=== PATIENT | female | born 1985 | race Caucasian/White ===

== ENCOUNTER 2017-11-02 10:15 | Day surgery (SDC) | payer BC ==
[~2017-11-02 10:15] MED LIST: Bisacodyl 5 MG Tab PO PRN; Ketorolac 15 MG/ML SDV IVPUSH PRN; Lactated Ringers 1,000 ML IV SCH; Lidocaine 1%/Sod Bicarbonate in NS 8.4% 1 ML Syringe IDERM PRN; Morphine 2 MG/ML Syringe IVPUSH PRN; Naloxone 0.4 MG/ML SDV IVPUSH PRN; Ondansetron 4 MG/2 ML SDV IVPUSH PRN; Sennosides 8.6 MG Tab PO PRN; Sodium Chloride 0.9% 10 ML Syringe FLUSH PRN
--- NOTE | 2017-11-02 11:48 | PCM.PREANE ---
Preanesthetic Assessment - Anesthesia/Transfusion/Family Hx Anesthesia History: Prior Anesthesia Without Reaction Family History of Anesthesia Reaction: No Transfusion History: No Prior Transfusion(s) Intubation History: History of Difficulty Intubation - Review of Systems General: No Symptoms Pulmonary: No Symptoms Cardiovascular: No Symptoms Gastrointestinal: No Symptoms Neurological: No Symptoms Other: Reports: None - Physical Assessment NPO Status Date: 11/02/17 NPO Status Time: 00:00 O2 Sat by Pulse Oximetry: 96 Respiratory Rate: 18 Vital Signs: Last Vital Signs Temp 37.2 C 11/02/17 10:32 Pulse 83 11/02/17 10:32 Resp 18 11/02/17 10:32 BP 126/77 11/02/17 10:32 Pulse Ox 96 11/02/17 10:32 Height: 1.52 m Weight: 69.853 kg ASA Class: 2 Mental Status: Alert & Oriented x3 Dentition: Reports: Normal Dentition Thyro-Mental Finger Breadths: 3 Mouth Opening Finger Breadths: 5 ROM/Head Extension: Full Lungs: Clear to Auscultation, Normal Respiratory Effort Cardiovascular: Regular Rate, Regular Rhythm - Lab Values: Laboratory Last Values Urine HCG, Qual Negative (NEGATIVE) 11/02/17 10:33 - Allergies Allergies/Adverse Reactions: Allergies Allergy/AdvReac Type Severity Reaction Status Date / Time crab Allergy Severe Chest Verified 11/02/17 11:17 Pain/Tightness egg Allergy Severe Chest Verified 11/02/17 11:17 Pain/Tightness latex Allergy Severe Rash Verified 11/02/17 11:17 shellfish derived Allergy Severe Chest Verified 11/02/17 11:17 Pain/Tightness shrimp Allergy Severe Chest Uncoded 11/02/17 11:17 Pain/Tightness - Blood Blood Available: No - Acknowledgements Anesthesia Type Planned: General Anesthesia Pt an Appropriate Candidate for the Planned Anesthesia: Yes Alternatives and Risks of Anesthesia Discussed w Pt/Guardian: Yes Pt/Guardian Understands and Agrees with Anesthesia Plan: Yes PreAnesthesia Questionnaire HEENT History: Reports: None Cardiovascular History: Reports: None Respiratory History: Reports: Asthma Other Respiratory History: cold induced asthma Gastrointestinal History: Reports: None TIE LAYER History: Reports: Other Musculoskeletal History: lt knee arhroscopy Neurological History: Reports: Headaches, Chronic Psychiatric History: Reports: Anxiety Endocrine/Metabolic History: Reports: None Hematologic History: Reports: None Immunologic History: Reports: None Oncologic (Cancer) History: Reports: None Dermatologic History: Reports: None - Past Surgical History Head Surgeries/Procedures: Reports: None HEENT Surgical History: Reports: None Cardiovascular Surgical History: Reports: None Respiratory Surgical History: Reports: None GI Surgical History: Reports: Colonoscopy Female Surgical History: Reports: Cervical Cryotherapy Other Female Surgeries/Procedures: cervical dysplasia Endocrine Surgical History: Reports: None Neurological Surgical History: Reports: None Oncologic Surgical History: Reports: None Dermatological Surgical History: Reports: None - SUBSTANCE USE Smoking Status *Q: Former Smoker (QUIT 2004) Tobacco Use Within Last Twelve Months: No Second Hand Smoke Exposure: No Recreational Drug Use History: No - HOME MEDS Home Medications: Home Meds Acetaminophen with Codeine [Tylenol with Codeine #3 Tablet] 1 tab PO Q6H PRN [History] Cholecalciferol (Vitamin D3) [Vitamin D3] 1,000 unit PO DAILY 10/30/17 [History] EPINEPHrine [Epipen] 1 dose IM ONETIME PRN 10/30/17 [History] Levonorgestrel [Mirena] 1 unit VAG ASDIRECTED 10/30/17 [History] Triamcinolone Acetonide [Nasacort] 1 spray NASBOTH BID PRN 10/30/17 [History] - CURRENT (IN HOUSE) MEDS Current Meds: Current Medications Aspirin (Ecotrin) 325 mg PO BID [facility] Bisacodyl (Dulcolax) 5 mg PO DAILY PRN PRN Reason: Constipation Morphine Sulfate 8 mg/Epinephrine HCl 0.3 mg/Cefuroxime Sodium 750 mg/Ketorolac Tromethamine 30 mg/Sodium Chloride 27.9 ml 0 mg .XX ONETIME ONE Stop: 11/02/17 13:01 Cyclobenzaprine HCl (Flexeril) 10 mg PO TID PRN PRN Reason: Spasms Docusate Sodium (Colace) 100 mg PO BID [facility] Famotidine (Pepcid) 20 mg PO Q12H [facility] Lactated Ringer's (Ringers, Lactated) 1,000 mls @ 125 mls/hr IV ASDIRECTED [facility] Stop: 11/02/17 23:00 Last Admin: 11/02/17 10:53 Dose: 125 mls/hr Cefazolin Sodium/Dextrose 2 gm (/ Premix) 50 mls @ 100 mls/hr IV Q8H [facility] Stop: 11/02/17 23:44 Ketorolac Tromethamine (Toradol) 15 mg IVPUSH Q6H PRN PRN Reason: Pain Lidocaine/Sodium Bicarbonate (Buffered Lidocaine 1% In Ns 8.4%) 0.25 ml IDERM ONETIME PRN PRN Reason: Prior to IV Start Stop: 11/02/17 18:00 Last Admin: 11/02/17 10:52 Dose: 0.25 ml Magnesium Hydroxide (Milk Of Magnesia) 30 ml PO BID PRN PRN Reason: Constipation Morphine Sulfate (Morphine) 2 mg IVPUSH Q2H PRN PRN Reason: Breakthrough Pain Naloxone HCl (Narcan) 0.1 mg IVPUSH Q5M PRN PRN Reason: Oversedation Ondansetron HCl (Zofran) 4 mg IVPUSH Q6H PRN PRN Reason: Nausea/Vomiting Oxycodone/Acetaminophen (Percocet 325-5 Mg) 1 - 2 tab PO Q4H PRN PRN Reason: Pain Senna (Senna) 8.6 mg PO BID PRN PRN Reason: Constipation Sodium Chloride (Saline Flush) 10 ml FLUSH ASDIRECTED PRN PRN Reason: Keep Vein Open Stop: 11/02/17 18:00
[2017-11-02] MEDS ORDERED: HYDROmorphone 0.5 MG/0.5 ML Syringe IVPUSH PRN (11:51)
[2017-11-02] MEDS ORDERED: diphenhydrAMINE 50 MG/ML SDV IVPUSH PRN ×2 (11:51→11:56)
[2017-11-02] MEDS ORDERED: Ondansetron 4 MG/2 ML SDV IVPUSH PRN (11:51)
[2017-11-02] MEDS ORDERED: Scopolamine 1 MG Transdermal Patch TRDERM PRN (12:04)
[2017-11-02] MEDS ORDERED: Propofol 200 MG/20 ML SDV ONE ×2 (12:20→13:38)
[2017-11-02] MEDS ORDERED: fentaNYL 100 MCG/2 ML SDV ONE (12:20)
[2017-11-02] MEDS ORDERED: Midazolam 1 MG/ML 2 ML SDV ONE (12:21)
[2017-11-02] MEDS ORDERED: Lidocaine 1% 4 ML ONE (12:23)
[2017-11-02] MEDS ORDERED: ceFAZolin 1 GM Vial ONE (12:25)
[2017-11-02] MEDS ORDERED: Dexamethasone 4 MG/ML 5 ML MDV ONE (12:29)
[2017-11-02] MEDS ORDERED: Ondansetron 4 MG/2 ML SDV ONE (12:29)
[2017-11-02] MEDS ORDERED: Rocuronium 50 MG/5 ML Vial ONE (12:30)
[2017-11-02] MEDS ORDERED: HYDROmorphone 1 MG/ML Syringe ONE (13:13)
[2017-11-02] MEDS ORDERED: fentaNYL 250 MCG/5 ML SDV ONE (13:27)
[2017-11-02] MEDS: ceFAZolin 1 GM Vial ONE ×2 (13:31→13:47)
[2017-11-02] MEDS: Morphine 8 MG, EPINEPHrine 0.3 MG, Cefuroxime 750 MG, Ketorolac 30 MG, Sodium Chloride ... ONE ×15 (13:32→18:19)
[2017-11-02] MEDS: Bupivacaine 0.25% 30 ML SDV ONE ×2 (13:32→13:53)
[2017-11-02] MEDS: Vancomycin 1 GM SDV ONE ×2 (13:33→13:59)
[2017-11-02] MEDS ORDERED: cloNIDine 1,000 MCG/10 ML SDV ONE (13:49)
[2017-11-02] MEDS ORDERED: EPINEPHrine 1 MG/ML SDV ONE (14:29)
[2017-11-02] MEDS ORDERED: Ropivacaine 0.5% 5 MG/ML 30 ML SDV ONE (14:29)
[2017-11-02] MEDS: fentaNYL 100 MCG/2 ML SDV IVPUSH PRN ×3 (14:48→15:44)
--- NOTE | 2017-11-02 14:49 | PCM.POSTAN ---
POST ANESTHESIA ASSESSMENT - MENTAL STATUS Mental Status: Other (drowsy ) - VITAL SIGNS Pulse Rate: 92 SaO2: 99 Resp Rate: 16 Blood Pressure: 102/57 Temperature: 97.7 C - RESPIRATORY Respiratory Status: Respiratory Rate WNL, Airway Patent, O2 Saturation Stable - CARDIOVASCULAR CV Status: Pulse Rate WNL, Blood Pressure Stable - GASTROINTESTINAL GI Status: No Symptoms - PAIN Pain Score: 0 - POST OP HYDRATION Hydration Status: Adequate & Stable
--- NOTE | 2017-11-02 15:19 | PCM.SN ---
- Free Text/Narrative Note: Left selective femoral nerve block at the adductor canal for post-procedure pain control under US guidance requested by Dr. Farias. Time Out: 1448 Start: 1448 End: 145 Chart reviewed. Consent signed. Questions answered. Appropriate monitors applied. Time out performed. Left mid-shaft femur identified with ultrasound, scanning medially of femur, the femoral artery in the adductor canal visualized , and the femoral nerve located laterally to the artery. The skin was prepped lateral to the ultrasound probe with chlorahexadine. The 21ga 4 insulated block needle was inserted under direct ultrasound guidance into the adductor canal. 25mL of 0.5% ropivacaine with 1:200,000 epinephrine was injected circumferentially around the nerve with intermittent negative aspiration noted. Patient tolerated the procedure well. See pictures on progress note and vital signs on nurses notes. Block completed in PACU. Freddie Price CRNA
[2017-11-02] MEDS ORDERED: Triamcinolone Acetonide [Nasacort] 1 SPRAY NASBOTH PRN (15:36)
[2017-11-02] MEDS ORDERED: EPINEPHrine 0.3 MG/0.3 ML Pen Autoinjector IM PRN (15:36)
--- NOTE | 2017-11-02 16:33 | CR ---
Left knee: AP and lateral views of the left knee were obtained. Study shows placement of a prosthesis within the patellofemoral joint. Medial and lateral joint compartments are maintained in height. No fracture or other abnormality is seen within the bony structures. Soft tissue air is noted from the surgical procedure. Impression: 1. Satisfactory radiographic appearance of recently placed prosthesis within the patellofemoral joint. Diagnostic code #2
--- NOTE | 2017-11-02 17:51 | PCM.CONS ---
H&P History of Present Illness - General Date of Service: 11/02/17 Admit Problem/Dx: Admission Diagnosis/Problem Admission Diagnosis/Problem Osteoarthritis of knee Source of Information: Patient, Provider, RN, Other (surgical notes ) History Limitations: Reports: No Limitations - History of Present Illness Initial Comments - Free Text/Narative: Leah Aaron is a 32 yo female patient of Dr. Farias who is post-operative day 0 of left knee patellofemoral moral replacement. Hospital medicine was consulted for post-operative medical care. At this time she is resting comfortably in bed. Pain is controlled, although she is due for pain meds. She denies any chest pain, shortness of breath, palpitations, nausea, or vomiting. She carries a history of: Asthma, chronic headaches, anxiety. She is a former smoker who quit in 2004. She is a full code. Her primary care provider is Arin Gillespie at in [place]. Left Knee Pain Score (Numeric/FACES): 5 - Related Data Allergies/Adverse Reactions: Allergies Allergy/AdvReac Type Severity Reaction Status Date / Time crab Allergy Severe Chest Verified 11/02/17 11:17 Pain/Tightness egg Allergy Severe Chest Verified 11/02/17 11:17 Pain/Tightness latex Allergy Severe Rash Verified 11/02/17 11:17 shellfish derived Allergy Severe Chest Verified 11/02/17 11:17 Pain/Tightness shrimp Allergy Severe Chest Uncoded 11/02/17 11:17 Pain/Tightness Home Medications: Home Meds Acetaminophen with Codeine [Tylenol with Codeine #3 Tablet] 1 tab PO Q6H PRN [History] Cholecalciferol (Vitamin D3) [Vitamin D3] 1,000 unit PO DAILY 10/30/17 [History] EPINEPHrine [Epipen] 1 dose IM ONETIME PRN 10/30/17 [History] Levonorgestrel [Mirena] 1 unit VAG ASDIRECTED 10/30/17 [History] Triamcinolone Acetonide [Nasacort] 1 spray NASBOTH BID PRN 10/30/17 [History] Past Medical History HEENT History: Reports: None Cardiovascular History: Reports: None Respiratory History: Reports: Asthma Other Respiratory History: cold induced asthma Gastrointestinal History: Reports: None BINMAN History: Reports: Other Musculoskeletal History: lt knee arhroscopy Neurological History: Reports: Headaches, Chronic Psychiatric History: Reports: Anxiety Endocrine/Metabolic History: Reports: None Hematologic History: Reports: None Immunologic History: Reports: None Oncologic (Cancer) History: Reports: None Dermatologic History: Reports: None - Past Surgical History Head Surgeries/Procedures: Reports: None HEENT Surgical History: Reports: None Cardiovascular Surgical History: Reports: None Respiratory Surgical History: Reports: None GI Surgical History: Reports: Colonoscopy Female Surgical History: Reports: Cervical Cryotherapy Other Female Surgeries/Procedures: cervical dysplasia Endocrine Surgical History: Reports: None Neurological Surgical History: Reports: None Oncologic Surgical History: Reports: None Dermatological Surgical History: Reports: None Social & Family History - Tobacco Use Smoking Status *Q: Former Smoker (QUIT 2004) Years of Tobacco use: 2 Used Tobacco, but Quit: Yes Month Tobacco Last Used: 2004 Second Hand Smoke Exposure: No - Caffeine Use Caffeine Use: Reports: None - Recreational Drug Use Recreational Drug Use: No H&P Review of Systems - Review of Systems: Review Of Systems: See Below General: Reports: No Symptoms. Denies: Fever, Chills, Malaise HEENT: Reports: No Symptoms Pulmonary: Reports: No Symptoms. Denies: Shortness of Breath, Wheezing, Cough Cardiovascular: Reports: No Symptoms. Denies: Chest Pain, Palpitations, Dyspnea on Exertion Gastrointestinal: Reports: No Symptoms. Denies: Abdominal Pain, Constipation, Diarrhea, Nausea, Vomiting Genitourinary: Reports: No Symptoms Musculoskeletal: Reports: Joint Pain (Left knee ) Skin: Reports: No Symptoms Psychiatric: Reports: No Symptoms Neurological: Reports: No Symptoms Hematologic/Lymphatic: Reports: No Symptoms Immunologic: Reports: No Symptoms Exam - Exam Exam: See Below - Vital Signs Vital Signs: Last Vital Signs Temp 98.7 F 11/02/17 15:52 Pulse 83 11/02/17 17:02 Resp 12 11/02/17 15:52 BP 118/60 11/02/17 17:02 Pulse Ox 100 11/02/17 17:02 Weight: 154 lb - Exam Quality Assessment: DVT Prophylaxis General: Alert, Oriented, Cooperative. No: Mild Distress HEENT: PERRLA, Hearing Intact, Mucosa Moist & [place], Nares Patent, Normal Nasal Septum, Posterior Pharynx Clear, Conjunctiva Clear, EOMI, EACs Clear, TMs Clear Neck: Supple, Trachea Midline Lungs: Clear to Auscultation, Normal Respiratory Effort Cardiovascular: Regular Rate, Regular Rhythm GI/Abdominal Exam: Normal Bowel Sounds, Soft, Non-Tender, No Organomegaly, No Distention, No Abnormal Bruit, No Mass, Pelvis Stable (Female) Exam: Deferred Rectal (Female) Exam: Deferred Back Exam: Normal Inspection, Full Range of Motion Extremities: No Pedal Edema, Normal Capillary Refill, Leg Pain (left), Limited Range of Motion, Other (VANDANA bandage in place on left leg. Bandage is dry and intact. Cooling pack in place ) Peripheral Pulses: 2+: Radial (L), Radial (R), Posterior Tibial (L), Posterior Tibial (R), Dorsalis Pedis (L), Dorsalis Pedis (R) Skin: Warm, Dry, Intact Neurological: Cranial Nerves Intact (grossly) Neuro Extensive - Mental Status: Alert, Oriented x3, Normal Mood/Affect, Normal Cognition, Memory Intact Psychiatric: Alert, Normal Affect, Normal Mood - Patient Data Lab Results Last 24 hrs: Laboratory Results - last 24 hr 11/02/17 Range/Units 10:33 Urine HCG, Qual Negative (NEGATIVE) Consult PN Assessment/Plan POD#: 0 Procedures: Procedures EMERGENCY DEPT VISIT (10/15/14) MR-STAPH DNA AMP PROBE (10/20/17) MRI JNT OF LWR EXTRE W/O DYE (08/11/17) URINALYSIS AUTO W/SCOPE (10/15/14) (1) S/P knee surgery SNOMED Code(s): 431949351, 424372125 Code(s): Z98.890 - OTHER SPECIFIED POSTPROCEDURAL STATES Priority: High Current Visit: Yes (2) Osteoarthritis SNOMED Code(s): 157322008 Code(s): M19.90 - UNSPECIFIED OSTEOARTHRITIS, UNSPECIFIED SITE Priority: High Current Visit: Yes Qualifiers: Osteoarthritis location: knee Osteoarthritis type: primary Laterality: left Qualified Code(s): M17.12 - Unilateral primary osteoarthritis, left knee (3) Asthma SNOMED Code(s): 308838208 Code(s): J45.909 - UNSPECIFIED ASTHMA, UNCOMPLICATED Priority: Low Current Visit: No Qualifiers: Asthma severity: unspecified severity Asthma persistence: unspecified Asthma complication type: unspecified Qualified Code(s): J45.909 - Unspecified asthma, uncomplicated (4) Chronic headaches SNOMED Code(s): 613732650 Code(s): R51 - HEADACHE Priority: Low Current Visit: No Qualifiers: Headache type: unspecified Intractability: not intractable Qualified Code (s): R51 - Headache (5) Anxiety SNOMED Code(s): 75257895 Code(s): F41.9 - ANXIETY DISORDER, UNSPECIFIED Priority: Low Current Visit: No Problem List Initiated/Reviewed/Updated: Yes Plan: I/P: Acute: S/P left knee patellofemoral replacement - post-operative day 0 -DVT prophylaxis and pain management per primary care team -PT/OT -IS/RT -Monitor oxygen saturation -Titrate oxygen as needed -Vital signs stable -Monitor labs -Pre-operative Hgb was 13.6, eGFR >60 Osteoarthritis of left knee patellofemoral joint -Pain management per primary care team Chronic: Cold induced asthma Chronic headaches Anxiety Plan: CM for discharge planning GI prophylaxis Home medications as indicated Other orders as listed above Routine AM labs She is a full code. Her PCP is Arin Gillespie, nurse practitioner at Thank you for allowing us to participate in the care of this patient!! Total time spent with patient 30 minutes Requesting Provider: Dr. Farias Date Consult Requested: 11/02/17 Reason for Consult: Post-operative medical care Time Spent (in minutes): 30
[2017-11-02] MEDS: Acetaminophen/oxyCODONE 325-5 MG Tab PO PRN (18:44)
[2017-11-02] MEDS: Cyclobenzaprine 10 MG Tab PO PRN (18:44)
[2017-11-02] MEDS: Aspirin 325 MG Tab.EC PO SCH (20:16)
[2017-11-02] MEDS: Famotidine 20 MG Tab PO SCH (20:16)
[2017-11-02] MEDS: Docusate Sodium 100 MG Cap PO SCH (20:16)
[2017-11-02] MEDS: ceFAZolin 2 GM in Premix Bag 1 BAG IV SCH (20:18)
[2017-11-02] MEDS ORDERED: Magnesium Hydroxide 400 MG/5 ML Susp 30 ML Cup PO PRN (21:00)
[2017-11-03] MEDS: Acetaminophen/oxyCODONE 325-5 MG Tab PO PRN ×3 (03:46→14:03)
[2017-11-03] MEDS: ceFAZolin 2 GM in Premix Bag 1 BAG IV SCH ×2 (03:47→11:38)
--- NOTE | 2017-11-03 07:34 | PCM.CONSN ---
- General Info Date of Service: 11/03/17 Admission Dx/Problem (Free Text): Admission Diagnosis/Problem Admission Diagnosis/Problem Osteoarthritis of knee POD #1 Pain under fair control, no n/v. Voiding, ambulating. Plans DC home today. Functional Status: Reports: Pain Controlled, Tolerating Diet, Ambulating, Urinating, Incentive Spirometry. Denies: New Symptoms - Review of Systems General: Reports: No Symptoms HEENT: Reports: No Symptoms Pulmonary: Reports: No Symptoms Cardiovascular: Reports: No Symptoms Gastrointestinal: Reports: No Symptoms Genitourinary: Reports: No Symptoms Musculoskeletal: Reports: Leg Pain Skin: Reports: No Symptoms Neurological: Reports: No Symptoms Psychiatric: Reports: No Symptoms - Patient Data Vitals - Most Recent: Last Vital Signs Temp 99.1 F 11/03/17 04:00 Pulse 62 11/03/17 04:00 Resp 16 11/03/17 04:00 BP 103/57 L 11/03/17 04:00 Pulse Ox 98 11/03/17 04:00 Weight - Most Recent: 154 lb I&O - Last 24 Hours: Intake & Output 11/02/17 11/03/17 11/03/17 22:59 06:59 14:59 Intake Total 500 600 Balance 500 600 Lab Results Last 24 Hours: Laboratory Results - last 24 hr 11/02/17 Range/Units 10:33 Urine HCG, Qual Negative (NEGATIVE) Med Orders - Current: Current Medications Aspirin (Ecotrin) 325 mg PO BID [facility] Last Admin: 11/02/17 20:16 Dose: 325 mg Bisacodyl (Dulcolax) 5 mg PO DAILY PRN PRN Reason: Constipation Cholecalciferol (Vitamin D3) 1,000 units PO DAILY [facility] Cyclobenzaprine HCl (Flexeril) 10 mg PO TID PRN PRN Reason: Spasms Last Admin: 11/02/17 18:44 Dose: 10 mg Docusate Sodium (Colace) 100 mg PO BID [facility] Last Admin: 11/02/17 20:16 Dose: 100 mg Epinephrine HCl (Epipen) 0.3 mg IM ONETIME PRN PRN Reason: anaphylaxis Famotidine (Pepcid) 20 mg PO Q12H [facility] Last Admin: 11/02/17 20:16 Dose: 20 mg Cefazolin Sodium/Dextrose 2 gm (/ Premix) 50 mls @ 100 mls/hr IV Q8H [facility] Stop: 11/03/17 12:59 Last Admin: 11/03/17 03:47 Dose: 100 mls/hr Ketorolac Tromethamine (Toradol) 15 mg IVPUSH Q6H PRN PRN Reason: Pain Last Admin: 11/02/17 18:01 Dose: 15 mg Magnesium Hydroxide (Milk Of Magnesia) 30 ml PO BID PRN PRN Reason: Constipation Miscellaneous Information (Remove Patch) 0 ea TRDERM Q72H [facility] Morphine Sulfate (Morphine) 2 mg IVPUSH Q2H PRN PRN Reason: Breakthrough Pain Naloxone HCl (Narcan) 0.1 mg IVPUSH Q5M PRN PRN Reason: Oversedation Ondansetron HCl (Zofran) 4 mg IVPUSH Q6H PRN PRN Reason: Nausea/Vomiting Oxycodone/Acetaminophen (Percocet 325-5 Mg) 1 - 2 tab PO Q4H PRN PRN Reason: Pain Last Admin: 11/03/17 03:46 Dose: 2 tab Triamcinolone Acetonide [Nasacort] 1 Ensign 0 each NASBOTH BID PRN PRN Reason: seasonal Scopolamine (Scopolamine) 1 each TRDERM Q72H PRN PRN Reason: Postop prevention of N/V Last Admin: 11/02/17 12:10 Dose: 1 each Senna (Senna) 8.6 mg PO BID PRN PRN Reason: Constipation Discontinued Medications Bupivacaine HCl (Marcaine 0.25%) Confirm Administered Dose 30 ml .ROUTE .STK- MED ONE Stop: 11/02/17 11:52 Last Admin: 11/02/17 13:53 Dose: 30 ml Cefazolin Sodium (Ancef) Confirm Administered Dose 2 gm .ROUTE .STK-MED ONE Stop: 11/02/17 11:52 Last Admin: 11/02/17 13:47 Dose: 2 gm Cefazolin Sodium (Ancef) Confirm Administered Dose 2 gm .ROUTE .STK-MED ONE Stop: 11/02/17 12:26 Clonidine HCl (Duraclon) Confirm Administered Dose 1,000 mcg .ROUTE .STK-MED ONE Stop: 11/02/17 13:50 Morphine Sulfate 8 mg/Epinephrine HCl 0.3 mg/Cefuroxime Sodium 750 mg/Ketorolac Tromethamine 30 mg/Sodium Chloride 27.9 ml 0 mg .XX ONETIME ONE Stop: 11/02/17 13:01 Last Admin: 11/02/17 18:19 Dose: Not Given Dexamethasone (Dexamethasone) Confirm Administered Dose 20 mg .ROUTE .STK-MED ONE Stop: 11/02/17 12:30 Diphenhydramine HCl (Benadryl) 25 mg IVPUSH Q6H PRN PRN Reason: pruritis Stop: 11/02/17 18:00 Diphenhydramine HCl (Benadryl) 12.5 mg IVPUSH Q6H PRN PRN Reason: pruritis Stop: 11/02/17 16:00 Last Admin: 11/02/17 12:11 Dose: 12.5 mg Epinephrine HCl (Adrenalin) Confirm Administered Dose 1 mg .ROUTE .STK-MED ONE Stop: 11/02/17 14:30 Fentanyl (Sublimaze) 50 mcg IVPUSH Q5M PRN PRN Reason: Pain Stop: 11/02/17 18:00 Last Admin: 11/02/17 15:44 Dose: 50 mcg Fentanyl (Sublimaze) Confirm Administered Dose 100 mcg .ROUTE .STK-MED ONE Stop: 11/02/17 12:21 Fentanyl (Sublimaze) Confirm Administered Dose 250 mcg .ROUTE .STK-MED ONE Stop: 11/02/17 13:28 Hydromorphone HCl (Dilaudid) 0.5 mg IVPUSH Q15M PRN PRN Reason: severe pain Stop: 11/02/17 11:52 Hydromorphone HCl (Dilaudid) Confirm Administered Dose 1 mg .ROUTE .STK-MED ONE Stop: 11/02/17 13:14 Lactated Ringer's (Ringers, Lactated) 1,000 mls @ 125 mls/hr IV ASDIRECTED [facility] Stop: 11/02/17 23:00 Last Admin: 11/02/17 10:53 Dose: 125 mls/hr Acetaminophen (Ofirmev) 100 mls @ 400 mls/hr IV NOW ONE Stop: 11/02/17 12:08 Last Admin: 11/02/17 12:11 Dose: 400 mls/hr Lidocaine HCl (Xylocaine-Mpf 1%) Confirm Administered Dose 4 mls @ as directed .ROUTE .STK-MED ONE Stop: 11/02/17 12:24 Levonorgestrel (Mirena) each IY ASDIRECTED [facility] Lidocaine/Sodium Bicarbonate (Buffered Lidocaine 1% In Ns 8.4%) 0.25 ml IDERM ONETIME PRN PRN Reason: Prior to IV Start Stop: 11/02/17 18:00 Last Admin: 11/02/17 10:52 Dose: 0.25 ml Midazolam HCl (Versed 1 Mg/Ml) Confirm Administered Dose 2 mg .ROUTE .STK-MED ONE Stop: 11/02/17 12:22 Ondansetron HCl (Zofran) 4 mg IVPUSH ONETIME PRN PRN Reason: Nausea/Vomiting Stop: 11/02/17 18:00 Ondansetron HCl (Zofran) Confirm Administered Dose 4 mg .ROUTE .STK-MED ONE Stop: 11/02/17 12:30 Propofol (Diprivan 20 Ml) Confirm Administered Dose 600 mg .ROUTE .STK-MED ONE Stop: 11/02/17 12:21 Propofol (Diprivan 20 Ml) Confirm Administered Dose 600 mg .ROUTE .STK-MED ONE Stop: 11/02/17 13:39 Rocuronium [place] (Zemuron) Confirm Administered Dose 50 mg .ROUTE .STK-MED ONE Stop: 11/02/17 12:31 Ropivacaine (Naropin 0.5%) Confirm Administered Dose 30 ml .ROUTE .STK-MED ONE Stop: 11/02/17 14:30 Sodium Chloride (Saline Flush) 10 ml FLUSH ASDIRECTED PRN PRN Reason: Keep Vein Open Stop: 11/02/17 18:00 Tranexamic Acid (Cyklokapron) Confirm Administered Dose 1,000 mg .ROUTE .STK- MED ONE Stop: 11/02/17 11:52 Last Admin: 11/02/17 14:03 Dose: 1,000 mg Vancomycin HCl (Vancomycin) Confirm Administered Dose 1 gm .ROUTE .STK-MED ONE Stop: 11/02/17 11:52 Last Admin: 11/02/17 13:59 Dose: 1 gm - Exam Quality Assessment: DVT Prophylaxis General: Alert, Oriented, Cooperative, No Acute Distress HEENT: Pupils Equal, EOMI, Mucous Membr. Moist/[place] Neck: Supple Lungs: Clear to Auscultation, Normal Respiratory Effort Cardiovascular: Regular Rate, Regular Rhythm GI/Abdominal Exam: Normal Bowel Sounds, Soft (Female) Exam: Deferred Extremities: Other (teds, SCD's) Peripheral Pulses: 2+: Dorsalis Pedis (L), Dorsalis Pedis (R) Neurological: No New Focal Deficit Psy/Mental Status: Alert, Normal Affect, Normal Mood Consult PN Assessment/Plan POD#: 1 Procedures: Procedures EMERGENCY DEPT VISIT (10/15/14) MR-STAPH DNA AMP PROBE (10/20/17) MRI JNT OF LWR EXTRE W/O DYE (08/11/17) URINALYSIS AUTO W/SCOPE (10/15/14) (1) Osteoarthritis SNOMED Code(s): 759232073 Code(s): M19.90 - UNSPECIFIED OSTEOARTHRITIS, UNSPECIFIED SITE Priority: High Current Visit: Yes Qualifiers: Osteoarthritis location: knee Osteoarthritis type: primary Laterality: left Qualified Code(s): M17.12 - Unilateral primary osteoarthritis, left knee (2) S/P knee surgery SNOMED Code(s): 562221509, 298709816 Code(s): Z98.890 - OTHER SPECIFIED POSTPROCEDURAL STATES Priority: High Current Visit: Yes Problem List Initiated/Reviewed/Updated: Yes Plan: I/P: Acute: S/P left knee patellofemoral replacement - post-operative day 1, Dr. Farais -DVT prophylaxis and pain management per primary care team -PT/OT -IS/RT -Vital signs stable -Monitor labs -Pre-operative Hgb was 13.6, eGFR >60, hgb still pending at this time- if acceptable when resulted will be OK for patient to DC home today, I suspect will be WNL or acceptable as patient is not symptomatic and with VSS. Osteoarthritis of left knee patellofemoral joint -Pain management per primary care team Chronic: Cold induced asthma Chronic headaches Anxiety Plan: CM for discharge planning---Plans for DC home today. OK for DC home from Hospitalist standpoint. GI prophylaxis Home medications as indicated Other orders as listed above Routine AM labs She is a full code. Her PCP is Arin Gillespie, nurse practitioner at [facility]
--- NOTE | 2017-11-03 08:54 | PCM.SURGPN ---
- General Info Date of Service: 11/03/17 POD#: 1 Functional Status: Reports: Pain Controlled, Tolerating Diet, Ambulating, Urinating, Incentive Spirometry - Review of Systems Musculoskeletal: Reports: Other (The pt feels prepared for discharge.) - Patient Data Vitals - Most Recent: Last Vital Signs Temp 98.4 F 11/03/17 07:46 Pulse 59 L 11/03/17 07:46 Resp 20 11/03/17 07:46 BP 105/56 L 11/03/17 07:46 Pulse Ox 100 11/03/17 07:46 Weight - Most Recent: 154 lb I&O - Last 24 Hours: Intake & Output 11/02/17 11/03/17 11/03/17 22:59 06:59 14:59 Intake Total 500 600 Balance 500 600 Lab Results Last 24 Hrs: Laboratory Results - last 24 hr 11/02/17 Range/Units 10:33 Urine HCG, Qual Negative (NEGATIVE) Med Orders - Current: Current Medications Aspirin (Ecotrin) 325 mg PO BID [facility] Last Admin: 11/02/17 20:16 Dose: 325 mg Bisacodyl (Dulcolax) 5 mg PO DAILY PRN PRN Reason: Constipation Cholecalciferol (Vitamin D3) 1,000 units PO DAILY [facility] Cyclobenzaprine HCl (Flexeril) 10 mg PO TID PRN PRN Reason: Spasms Last Admin: 11/02/17 18:44 Dose: 10 mg Docusate Sodium (Colace) 100 mg PO BID [facility] Last Admin: 11/02/17 20:16 Dose: 100 mg Epinephrine HCl (Epipen) 0.3 mg IM ONETIME PRN PRN Reason: anaphylaxis Famotidine (Pepcid) 20 mg PO Q12H [facility] Last Admin: 11/02/17 20:16 Dose: 20 mg Cefazolin Sodium/Dextrose 2 gm (/ Premix) 50 mls @ 100 mls/hr IV Q8H [facility] Stop: 11/03/17 12:59 Last Admin: 11/03/17 03:47 Dose: 100 mls/hr Ketorolac Tromethamine (Toradol) 15 mg IVPUSH Q6H PRN PRN Reason: Pain Last Admin: 11/02/17 18:01 Dose: 15 mg Magnesium Hydroxide (Milk Of Magnesia) 30 ml PO BID PRN PRN Reason: Constipation Miscellaneous Information (Remove Patch) 0 ea TRDERM Q72H [place] Morphine Sulfate (Morphine) 2 mg IVPUSH Q2H PRN PRN Reason: Breakthrough Pain Naloxone HCl (Narcan) 0.1 mg IVPUSH Q5M PRN PRN Reason: Oversedation Ondansetron HCl (Zofran) 4 mg IVPUSH Q6H PRN PRN Reason: Nausea/Vomiting Oxycodone/Acetaminophen (Percocet 325-5 Mg) 1 - 2 tab PO Q4H PRN PRN Reason: Pain Last Admin: 11/03/17 03:46 Dose: 2 tab Triamcinolone Acetonide [Nasacort] 1 [place] 0 each NASBOTH BID PRN PRN Reason: seasonal Scopolamine (Scopolamine) 1 each TRDERM Q72H PRN PRN Reason: Postop prevention of N/V Last Admin: 11/02/17 12:10 Dose: 1 each Senna (Senna) 8.6 mg PO BID PRN PRN Reason: Constipation Discontinued Medications Bupivacaine HCl (Marcaine 0.25%) Confirm Administered Dose 30 ml .ROUTE .STK- MED ONE Stop: 11/02/17 11:52 Last Admin: 11/02/17 13:53 Dose: 30 ml Cefazolin Sodium (Ancef) Confirm Administered Dose 2 gm .ROUTE .STK-MED ONE Stop: 11/02/17 11:52 Last Admin: 11/02/17 13:47 Dose: 2 gm Cefazolin Sodium (Ancef) Confirm Administered Dose 2 gm .ROUTE .STK-MED ONE Stop: 11/02/17 12:26 Clonidine HCl (Duraclon) Confirm Administered Dose 1,000 mcg .ROUTE .STK-MED ONE Stop: 11/02/17 13:50 Morphine Sulfate 8 mg/Epinephrine HCl 0.3 mg/Cefuroxime Sodium 750 mg/Ketorolac Tromethamine 30 mg/Sodium Chloride 27.9 ml 0 mg .XX ONETIME ONE Stop: 11/02/17 13:01 Last Admin: 11/02/17 18:19 Dose: Not Given Dexamethasone (Dexamethasone) Confirm Administered Dose 20 mg .ROUTE .STK-MED ONE Stop: 11/02/17 12:30 Diphenhydramine HCl (Benadryl) 25 mg IVPUSH Q6H PRN PRN Reason: pruritis Stop: 11/02/17 18:00 Diphenhydramine HCl (Benadryl) 12.5 mg IVPUSH Q6H PRN PRN Reason: pruritis Stop: 11/02/17 16:00 Last Admin: 11/02/17 12:11 Dose: 12.5 mg Epinephrine HCl (Adrenalin) Confirm Administered Dose 1 mg .ROUTE .STK-MED ONE Stop: 11/02/17 14:30 Fentanyl (Sublimaze) 50 mcg IVPUSH Q5M PRN PRN Reason: Pain Stop: 11/02/17 18:00 Last Admin: 11/02/17 15:44 Dose: 50 mcg Fentanyl (Sublimaze) Confirm Administered Dose 100 mcg .ROUTE .STK-MED ONE Stop: 11/02/17 12:21 Fentanyl (Sublimaze) Confirm Administered Dose 250 mcg .ROUTE .STK-MED ONE Stop: 11/02/17 13:28 Hydromorphone HCl (Dilaudid) 0.5 mg IVPUSH Q15M PRN PRN Reason: severe pain Stop: 11/02/17 11:52 Hydromorphone HCl (Dilaudid) Confirm Administered Dose 1 mg .ROUTE .STK-MED ONE Stop: 11/02/17 13:14 Lactated Ringer's (Ringers, Lactated) 1,000 mls @ 125 mls/hr IV ASDIRECTED [facility] Stop: 11/02/17 23:00 Last Admin: 11/02/17 10:53 Dose: 125 mls/hr Acetaminophen (Ofirmev) 100 mls @ 400 mls/hr IV NOW ONE Stop: 11/02/17 12:08 Last Admin: 11/02/17 12:11 Dose: 400 mls/hr Lidocaine HCl (Xylocaine-Mpf 1%) Confirm Administered Dose 4 mls @ as directed .ROUTE .STK-MED ONE Stop: 11/02/17 12:24 Levonorgestrel (Mirena) each IY ASDIRECTED [facility] Lidocaine/Sodium Bicarbonate (Buffered Lidocaine 1% In Ns 8.4%) 0.25 ml IDERM ONETIME PRN PRN Reason: Prior to IV Start Stop: 11/02/17 18:00 Last Admin: 11/02/17 10:52 Dose: 0.25 ml Midazolam HCl (Versed 1 Mg/Ml) Confirm Administered Dose 2 mg .ROUTE .STK-MED ONE Stop: 11/02/17 12:22 Ondansetron HCl (Zofran) 4 mg IVPUSH ONETIME PRN PRN Reason: Nausea/Vomiting Stop: 11/02/17 18:00 Ondansetron HCl (Zofran) Confirm Administered Dose 4 mg .ROUTE .STK-MED ONE Stop: 11/02/17 12:30 Propofol (Diprivan 20 Ml) Confirm Administered Dose 600 mg .ROUTE .STK-MED ONE Stop: 11/02/17 12:21 Propofol (Diprivan 20 Ml) Confirm Administered Dose 600 mg .ROUTE .STK-MED ONE Stop: 11/02/17 13:39 Rocuronium Spade (Zemuron) Confirm Administered Dose 50 mg .ROUTE .STK-MED ONE Stop: 11/02/17 12:31 Ropivacaine (Naropin 0.5%) Confirm Administered Dose 30 ml .ROUTE .STK-MED ONE Stop: 11/02/17 14:30 Sodium Chloride (Saline Flush) 10 ml FLUSH ASDIRECTED PRN PRN Reason: Keep Vein Open Stop: 11/02/17 18:00 Tranexamic Acid (Cyklokapron) Confirm Administered Dose 1,000 mg .ROUTE .STK- MED ONE Stop: 11/02/17 11:52 Last Admin: 11/02/17 14:03 Dose: 1,000 mg Vancomycin HCl (Vancomycin) Confirm Administered Dose 1 gm .ROUTE .STK-MED ONE Stop: 11/02/17 11:52 Last Admin: 11/02/17 13:59 Dose: 1 gm - Exam Wound/Incisions: Dressing Dry and Intact General: Alert, Cooperative, No Acute Distress Lungs: Normal Respiratory Effort Extremities: Other (NVS intact for BLE. Sariah's negative. Mod left knee swelling.) - Problem List Review Problem List Initiated/Reviewed/Updated: Yes - My Orders Last 24 Hours: Active Orders 24 hr Category Date Time Status Cooling Warming Measures [RC] ASDIRECTED Care 11/02/17 11:51 Inactive Notify Provider [RC] ASDIRECTED Care 11/02/17 11:51 Active Vital Signs [RC] Q15M Care 11/02/17 11:51 Inactive Regular Diet [DIET] Diet 11/02/17 Lunch Active CBC WITH AUTO DIFF [HEME] AM Lab 11/03/17 05:11 Ordered COMPREHENSIVE METABOLIC PN,CMP [CHEM] AM Lab 11/03/17 07:15 Ordered Aspirin [Ecotrin] Med 11/02/17 21:00 Active 325 mg PO BID Cholecalciferol (Vitamin D3) [Vitamin D3] Med 11/03/17 09:00 Active 1,000 units PO DAILY Docusate Sodium [Colace] Med 11/02/17 21:00 Active 100 mg PO BID EPINEPHrine [Epipen] Med 11/02/17 15:36 Active 0.3 mg IM ONETIME PRN Famotidine [Pepcid] Med 11/02/17 21:00 Active 20 mg PO Q12H Magnesium Hydroxide [Milk of Magnesia] Med 11/02/17 21:00 Active 30 ml PO BID PRN Patient's Own Medication [Ptom] Med 11/02/17 15:36 Active 0 each NASBOTH BID PRN Remove Patch Med 11/05/17 12:00 Active 0 ea TRDERM Q72H Scopolamine Med 11/02/17 12:04 Active 1 each TRDERM Q72H PRN ceFAZolin [Ancef] 2 gm Med 11/02/17 20:30 Active Premix Bag 1 bag IV Q8H Medication Orders Aspirin (Ecotrin) 325 mg PO BID [facility] Last Admin: 11/02/17 20:16 Dose: 325 mg Bisacodyl (Dulcolax) 5 mg PO DAILY PRN PRN Reason: Constipation Cholecalciferol (Vitamin D3) 1,000 units PO DAILY [facility] Cyclobenzaprine HCl (Flexeril) 10 mg PO TID PRN PRN Reason: Spasms Last Admin: 11/02/17 18:44 Dose: 10 mg Docusate Sodium (Colace) 100 mg PO BID [facility] Last Admin: 11/02/17 20:16 Dose: 100 mg Epinephrine HCl (Epipen) 0.3 mg IM ONETIME PRN PRN Reason: anaphylaxis Famotidine (Pepcid) 20 mg PO Q12H [facility] Last Admin: 11/02/17 20:16 Dose: 20 mg Cefazolin Sodium/Dextrose 2 gm (/ Premix) 50 mls @ 100 mls/hr IV Q8H [facility] Stop: 11/03/17 12:59 Last Admin: 11/03/17 03:47 Dose: 100 mls/hr Infusion: 11/02/17 20:48 Dose: 100 mls/hr Admin: 11/02/17 20:18 Dose: 100 mls/hr Ketorolac Tromethamine (Toradol) 15 mg IVPUSH Q6H PRN PRN Reason: Pain Last Admin: 11/02/17 18:01 Dose: 15 mg Magnesium Hydroxide (Milk Of Magnesia) 30 ml PO BID PRN PRN Reason: Constipation Miscellaneous Information (Remove Patch) 0 ea TRDERM Q72H [place] Morphine Sulfate (Morphine) 2 mg IVPUSH Q2H PRN PRN Reason: Breakthrough Pain Naloxone HCl (Narcan) 0.1 mg IVPUSH Q5M PRN PRN Reason: Oversedation Ondansetron HCl (Zofran) 4 mg IVPUSH Q6H PRN PRN Reason: Nausea/Vomiting Oxycodone/Acetaminophen (Percocet 325-5 Mg) 1 - 2 tab PO Q4H PRN PRN Reason: Pain Last Admin: 11/03/17 03:46 Dose: 2 tab Admin: 11/02/17 18:44 Dose: 2 tab Triamcinolone Acetonide [Nasacort] 1 [place] 0 each NASBOTH BID PRN PRN Reason: seasonal Scopolamine (Scopolamine) 1 each TRDERM Q72H PRN PRN Reason: Postop prevention of N/V Last Admin: 11/02/17 12:10 Dose: 1 each Senna (Senna) 8.6 mg PO BID PRN PRN Reason: Constipation - Assessment Assessment (Free Text/Narrative):: POD#1 - left PFJ - Plan Plan (Free Text/Narrative):: 1. Hgb 2. 325mg ASA BID, TEDs, frequent mobility. 3. Discharge to home today. 4. Outpatient P.T. The pt's case was discussed with Dr. Farias.
[2017-11-03] MEDS ORDERED: Cholecalciferol (Vitamin D3) 1,000 Unit Tab PO SCH (09:00)
[2017-11-03] MEDS: Docusate Sodium 100 MG Cap PO SCH (09:06)
[2017-11-03] MEDS: Aspirin 325 MG Tab.EC PO SCH (09:06)
[2017-11-03] MEDS: Famotidine 20 MG Tab PO SCH (09:06)
[2017-11-03] MEDS: Cyclobenzaprine 10 MG Tab PO PRN (10:20)
[2017-11-03 14:44] VITALS: BP 115/73
--- NOTE | 2017-11-08 21:09 | PCM.OPNOTE ---
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
--- NOTE | 2017-11-08 22:16 | OR ---
DATE OF OPERATION: 11/02/2017 SURGEON: Corey Farias MD OPERATION PERFORMED: Left knee patellofemoral arthroplasty. PREOPERATIVE DIAGNOSIS: Left knee patellofemoral arthrosis. POSTOPERATIVE DIAGNOSIS: Left knee patellofemoral arthrosis. ANESTHESIA: Local MAC with spinal. ANESTHESIA PROVIDER: Brian Foley. ASSISTANTS: Elaine Nelson PA-C, and Jayne Quijano LPN. ESTIMATED BLOOD LOSS: 20 mL. COMPLICATIONS: None. CONDITION: Stable. IMPLANTS: 1. Ericka size 2 femoral component for patellofemoral arthroplasty. 2. Ericka size 32 x 8.5 mm concentric patella. DESCRIPTION OF PROCEDURE: The patient was identified in the preop holding area. Proper site was marked and identified by the surgeon. The patient was taken back to the operating theater, where after adequate anesthesia, the patient's left lower extremity had a nonsterile tourniquet applied and was then sterilely prepped and draped in the usual sterile fashion. OR time-out was performed. The patient received 2 g IV Ancef. At this time, the left lower extremity was exsanguinated. Tourniquet was insufflated 250 mmHg. Standard medial parapatellar incision was made and medial parapatellar arthrotomy was created making sure not to disrupt the inter- meniscal ligament or any cartilage. At this time, keeping intermeniscal ligament intact, the patella was then everted and direct visualization of the knee was then undertaken. 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 There was no chondromalacia noted at the medial and lateral femoral condyles or plateaus. There was no meniscal tear noted. At this time, it was decided we would do a patellofemoral arthroplasty. At this time, the patella measured a 23 and was resected to a 14 for a 32 x 8.5 mm patella. The drill holes were then drilled for this. Attention was then turned to the femur. A drill hole was placed in the distal femur and the intramedullary cutting guide was then placed. At this time, external rotation as well as the caliber was used on the anterior femoral cortex making sure that there was adequate resection once the external rotation was locked in using Whitesides line and epicondyles as reference. Once this was dialed in, then it was pinned in place and the anterior femoral cut was completed. It was found to have an adequate resection. At this time, the sizing guide was placed and it was found to be a size 2. The drill holes were then drilled and the milling guide was then placed, and the mill starting with center track in the lateral and the medial was then undertaken. The drill hole for the center portion was then drilled as well in the milling guide. At this time, the #2 trial was placed. The patient's knee was brought through range of motion and was tracking centrally in the trochlea. No signs of patellar subluxation. There was not good fit with the existing cartilage surface with no significant prominence noted of the implant. At this time, cement was mixed on the back table. The cut surfaces were irrigated with pulse lavage irrigation with Ancef and then all bony cut surfaces were well dried. At this time, the size 2 Ericka component was impacted into place with cement on the femoral side and a 32 x 8.5 mm patella was cemented into place. At this time, the patient's knee was again brought through range of motion and was found to be adequately tracking. At this time, tourniquet remained up. A 3 L pulse lavage irrigation with Ancef was then irrigated through the knee. A periarticular injection was then also completed. A #2 barbed suture was used for closure of the medial parapatellar arthrotomy. A 2-0 Vicryl was used subcutaneously and a running 3-0 Monocryl was used subcuticularly along with Prineo for the skin. The patient had a sterile soft dressing applied and was then sent to PACU in stable condition. MELL /[id number]
== END 2017-11-03 14:50 | disposition home or self-care (01) ==
LOC: JD.SDS 10:15 → JD.MS 15:34 → JD.SDS 11-03 14:50
PROVIDERS: ATTEND Orthopaedic Surgery
DX: M17.12 Unilateral primary osteoarthritis, left knee (principal); J45.909 Unspecified asthma, uncomplicated; F41.9 Anxiety disorder, unspecified; R51 Headache; Z91.013 Allergy to seafood; Z91.018 Allergy to other foods; Z91.040 Latex allergy status; Z87.891 Personal history of nicotine dependence; Z91.012 Allergy to eggs; Z79.899 Other long term (current) drug therapy
CPT/HCPCS: 27442; 36415; 64447; 73560; 80053; 81025; 85025; 97110; 97116; 97161; 97165; 97535; A9270; C1713; C1776; J0171; J0690; J0697; J0735; J1100; J1170; J1200; J1885; J2250; J2270; J2405; J2795; J3010; J3370; J3490; J7120; J2704

== ENCOUNTER 2023-09-02 07:00 | Day surgery (SDC) | payer BC ==
[~2023-09-02 07:00] MED LIST changes: -Bisacodyl 5 MG Tab PO PRN; -Ketorolac 15 MG/ML SDV IVPUSH PRN; -Lidocaine 1%/Sod Bicarbonate in NS 8.4% 1 ML Syringe IDERM PRN; -Morphine 2 MG/ML Syringe IVPUSH PRN; -Naloxone 0.4 MG/ML SDV IVPUSH PRN; -Ondansetron 4 MG/2 ML SDV IVPUSH PRN; -Sennosides 8.6 MG Tab PO PRN; +Sodium Chloride 0.9% 10 ML Syringe FLUSH SCH
[2023-09-02] MEDS ORDERED: HYDROmorphone 0.5 MG/0.5 ML Syringe IVPUSH PRN ×2 (07:42→09:28)
[2023-09-02] MEDS ORDERED: fentaNYL 100 MCG/2 ML SDV IVPUSH PRN ×2 (07:42→09:28)
[2023-09-02] MEDS ORDERED: Bupivacaine 0.25% 10 ML SDV ONE (08:35)
[2023-09-02] MEDS ORDERED: EPINEPHrine 1 MG/ML SDV ONE (08:36)
[2023-09-02] MEDS ORDERED: Propofol 200 MG/20 ML SDV ONE (08:53)
[2023-09-02] MEDS ORDERED: Midazolam 1 MG/ML 2 ML SDV ONE (08:54)
[2023-09-02] MEDS ORDERED: fentaNYL 100 MCG/2 ML SDV ONE ×2 (08:54→09:09)
[2023-09-02] MEDS ORDERED: ceFAZolin 2 GM Vial ONE (08:59)
[2023-09-02] MEDS ORDERED: Lidocaine 1% 5 ML VIAL ONE (08:59)
[2023-09-02] MEDS ORDERED: Dexamethasone 4 MG/ML 5 ML MDV ONE (09:08)
[2023-09-02] MEDS ORDERED: Metoclopramide 10 MG/2 ML SDV ONE (09:08)
[2023-09-02] MEDS ORDERED: Ondansetron 4 MG/2 ML SDV IVPUSH PRN (09:28)
[2023-09-02] MEDS ORDERED: Acetaminophen/HYDROcodone 325-5 MG Tab PO PRN (09:53)
[2023-09-02 11:54] VITALS: BP 120/80; PULSE 71
== END 2023-09-02 11:54 | disposition home or self-care (01) ==
LOC: JD.SDS 07:00
PROVIDERS: ATTEND Orthopaedic Surgery
DX: S83.8X1A Sprain of other specified parts of right knee, initial encounter (principal); M22.41 Chondromalacia patellae, right knee; F41.1 Generalized anxiety disorder; Z98.890 Other specified postprocedural states; Z87.891 Personal history of nicotine dependence; X58.XXXA Exposure to other specified factors, initial encounter; Z91.013 Allergy to seafood; Z91.012 Allergy to eggs; Z91.040 Latex allergy status; Z88.0 Allergy status to penicillin; Z88.8 Allergy status to other drugs, medicaments and biological substances
CPT/HCPCS: 29881; A9270; J0171; J0690; J1100; J2250; J2704; J2765; J3010; J3490; J7120